=== PATIENT | female | born 1975 | race African-American/Black ===

== ENCOUNTER → 2016-11-14 | Outpatient (CLI) | payer OTHER ==
--- NOTE | ~2016-11-14 | MY11 ---
[facility] A Service of [facility] RADIOLOGY TEXT RESULTS PATIENT: JOSE E JIMÉNEZ LOCATION: [facility] : 79 UNIT #: [id number] AGE: [address]: Jeet Pan MD SEX: F ORDER DR: [id number] [place] [id number] P MR#: [id number] Acc #: [id number] NAME: JOSE E JIMÉNEZ : 1975 SEX: F STUDY DATE/TIME: 11/14/2016 13:34 UNIT: [facility] ROOM: STUDY DESCRIPTION: MY Mammogram Screening Dig Luis Attending Physician: Jeet Pan M.D. Referring Physician: Jeet Pan M.D. Ordering Physician: Jeet Pan M.D. Primary Care Physician: Jeet Pan M.D. MEDICAL IMAGING REPORT This report is preliminary unless electronic signature is present. EXAM Digital screening mammogram, 11/14/2016 HISTORY 41-year-old woman positive family history, mother age 42. Annual screening. COMPARISON Mammograms date to 08/27/2012 with most recent 10/05/2015. FINDINGS Digital imaging of each breast was completed utilizing a two-view examination of each breast in craniocaudal and mediolateral-oblique projections. Review and interpretation of digital mammograms include a second review in conjunction with FDA-approved CAD device. There is a normal parenchymal presentation bilaterally consistent with the patient's age. There are no breast masses imaged and no parenchymal asymmetry is visualized. There are no suspicious microcalcifications and I see no focal architectural disturbance. IMPRESSION Negative screening digital mammogram. One-year followup recommended. Patients over the age of 40 are entered into a reminder system with target due date for the next mammogram. A result letter will also be sent to the patient. BIRADS: 1 Negative Dictated by... Douglas Chino M.D. THIS IS AN ELECTRONICALLY VERIFIED REPORT [facility] A Service [facility] RADIOLOGY TEXT RESULTS PATIENT: JOSE E JIMÉNEZ LOCATION: [facility] : 79 UNIT #: [id number] AGE: [address]: Jeet Pan MD SEX: F ORDER DR: Douglas Chino M.D. at 11/14/2016 3:31 PM Ling TD: 11/14/2016 14:42 JOB #: [id number] MEDICAL IMAGING REPORT Page 1 of 1
== END | disposition home or self-care (01) ==
LOC: SMAM 13:03
DX: Z12.31 Encounter for screening mammogram for malignant neoplasm of breast (principal); Z80.3 Family history of malignant neoplasm of breast
CPT/HCPCS: G0202